=== PATIENT | female | born 2000 | race American Indian/Alaskan Native ===

== ENCOUNTER 2021-09-30 01:05 | Emergency (ER) | payer SELFPAY ==
[2021-09-30] MEDS ORDERED: predniSONE 50 MG TAB PO ONE (08:09)
[2021-09-30] MEDS ORDERED: KETOROLAC 60 MG/2 ML INJ IM ONE (08:09)
[2021-09-30] MEDS ORDERED: predniSONE 20 MG TAB PO ONE (08:11)
--- NOTE | 2021-09-30 08:13 | Emergency Department Report ---
ED Extremity Problem HPI - General Chief complaint: Extremity Problem,Nontraumatic Stated complaint: ARTHRITIS PAIN IN KNEES Time Seen by Provider: 09/30/21 07:41 Source: patient Mode of arrival: Ambulatory Limitations: No Limitations - History of Present Illness Initial comments: 1-year-old female with known history of rheumatoid arthritis and bilateral chronic knee pain secondary to arthritis presents to the ER today complaining of flareup of arthritis pain in her knees. She states that the right wrist and left. She states that the pain started today. Patient states that she typically takes prednisone 5 mg daily, but took her last tablet last night. 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 She reports swelling to both knees. She denies any additional symptoms such as redness to the knees, bruising, calf pain, shortness of breath, chest pain, fever or chills. MD Complaint: joint swelling, joint paint -: year(s) Severity scale (0 -10): 8 - Related Data Previous Rx's Medication Instructions Recorded Last Taken Type Acetaminophen/Codeine [Tylenol 1 tab PO Q6H PRN #12 tab 09/30/21 Unknown Rx /Codeine # 3 tab] Prednisone [predniSONE 10 mg 10 mg PO .TAPER #1 tab.ds.pk 09/30/21 Unknown Rx (6-Day Pack, 21 Tabs)] predniSONE [Deltasone] 5 mg PO QDAY #30 tab 09/30/21 Unknown Rx Allergies Allergy/AdvReac Type Severity Reaction Status Date / Time No Known Allergies Allergy Unverified 09/30/21 01:11 ED Review of Systems ROS: Stated complaint: ARTHRITIS PAIN IN KNEES Other details as noted in HPI Comment: All other systems reviewed and negative Respiratory: denies: cough, shortness of breath, SOB with exertion, SOB at rest, wheezing Cardiovascular: denies: chest pain, palpitations Musculoskeletal: joint swelling, arthralgia Skin: denies: rash, lesions Neurological: abnormal gait. denies: headache, weakness, paresthesias Psychiatric: denies: anxiety, depression, auditory hallucinations, visual hallucinations, homicidal thoughts, suicidal thoughts Hematological/Lymphatic: denies: easy bleeding, swollen glands ED Past Medical Hx - Medications Home Medications: Home Medications Medication Instructions Recorded Confirmed Last Taken Type Acetaminophen/Codeine [Tylenol 1 tab PO Q6H PRN #12 tab 09/30/21 Unknown Rx /Codeine # 3 tab] Prednisone [predniSONE 10 mg 10 mg PO .TAPER #1 tab.ds.pk 09/30/21 Unknown Rx (6-Day Pack, 21 Tabs)] predniSONE [Deltasone] 5 mg PO QDAY #30 tab 09/30/21 Unknown Rx ED Physical Exam - General Limitations: No Limitations General appearance: alert, in no apparent distress - Head Head exam: Present: atraumatic, normocephalic, normal inspection - Respiratory Respiratory exam: Present: normal lung sounds bilaterally. Absent: respiratory distress - Cardiovascular Cardiovascular Exam: Present: regular rate, normal rhythm, normal heart sounds - Extremities Exam Extremities exam: Present: other (Mild swelling noted to both knees, but there is moderate diffuse tenderness noted to the right knee, and mild diffuse tenderness to the left knee. No apparent joint effusion, erythema, deformity or warmth. No calf tenderness or swelling) - Neurological Exam Neurological exam: Present: alert, oriented X3, CN II-XII intact, other (Mild limping gait) - Psychiatric Psychiatric exam: Present: normal affect, normal mood - Skin Skin exam: Present: intact ED Course Vital Signs 09/30/21 09/30/21 01:14 08:27 Temperature 98.0 F Pulse Rate 90 82 Respiratory 20 16 Rate Blood Pressure 113/76 126/78 [Left] O2 Sat by Pulse 99 100 Oximetry Critical care attestation.: If time is entered above; I have spent that time in minutes in the direct care of this critically ill patient, excluding procedure time. ED Disposition Clinical Impression: Chronic pain of both knees, Hx of rheumatoid arthritis Disposition: 01 HOME / SELF CARE / HOMELESS Is pt being admited?: No Does the pt Need Aspirin: No Condition: Stable Instructions: Chronic Knee Pain, Adult, [id number], Arthritis, [id number] Additional Instructions: Recommend that you take the prednisone taper after you complete the prednisone taper start taking the 5 mg daily and also take the Tylenol threes as prescribed to help the pain. Most importantly I do recommend that you try to follow-up with one of the primary care doctors listed on your discharge instructions for continued care of your rheumatoid arthritis and prescription refills. Return to the ER if at any point your symptoms changes or worsens in any way. Prescriptions: predniSONE [Deltasone] 5 mg PO QDAY #30 tab Prednisone [predniSONE 10 mg (6-Day Pack, 21 Tabs)] 10 mg PO .TAPER #1 tab.ds.pk Acetaminophen/Codeine [Tylenol /Codeine # 3 tab] 1 tab PO Q6H PRN #12 tab PRN Reason: Pain , Severe (7-10) Referrals: BARRINGTON CARRILLO MD [Staff Physician] - 3-[address] [facility] [Provider Group] - 3-5 Days [facility] [Provider Group] - 3-5 Days Forms: Work/School Release Form(ED) Time of Disposition: 08:13
[2021-09-30 08:28] VITALS: BP 126/78
== END 2021-09-30 08:27 | disposition home or self-care (01) ==
LOC: ED 01:05
DX: G89.29 Other chronic pain (principal); M25.561 Pain in right knee; M25.562 Pain in left knee; M06.9 Rheumatoid arthritis, unspecified
CPT/HCPCS: 96372; 99282; J1885; J7512

== ENCOUNTER 2022-01-17 07:49 | Emergency (ER) | payer SELFPAY ==
[2022-01-17] MEDS ORDERED: KETOROLAC 10 MG TAB PO ONE (12:14)
[2022-01-17] MEDS ORDERED: predniSONE 20 MG TAB PO ONE (12:14)
[2022-01-17] MEDS ORDERED: ACETAMINOPHEN W/CODEINE 300-30 MG TAB PO ONE (12:15)
--- NOTE | 2022-01-17 12:19 | Emergency Department Report ---
ED Extremity Problem HPI - General Chief complaint: Extremity Problem,Nontraumatic Stated complaint: BILATERAL LEG PAIN Time Seen by Provider: 01/17/22 12:09 Source: EMS Mode of arrival: Stretcher Limitations: No Limitations - History of Present Illness Initial comments: 21-year-old black female with a past medical history of rheumatoid arthritis presents to the emergency department for evaluation of bilateral knee pain and swelling that started yesterday. She denies injury or trauma but states that her pain and swelling is consistent with what she has when she has a flare of her rheumatoid arthritis. She states that she takes prednisone 5 mg p.o. daily for RA but has not had any relief in symptoms. MD Complaint: extremity pain, extremity swelling -: Gradual, days(s) (1) Location: bilateral lower extremity, knee History of Same: Yes -: No myalgia, Yes arthralgia, No fever, No associated dyspnea, No associated chest pain Radiation: none Severity scale (0 -10): 10 Quality: aching Consistency: constant Worsens with: weight bearing, walking Associated Symptoms: arthralgias. denies: chest pain, shortness of breath, fever, myalgias, rash - Related Data Previous Rx's Medication Instructions Recorded Last Taken Type Acetaminophen/Codeine [Tylenol 1 tab PO Q6H PRN #12 tab 09/30/21 Unknown Rx /Codeine # 3 tab] Prednisone [predniSONE 10 mg 10 mg PO .TAPER #1 tab.ds.pk 09/30/21 Unknown Rx (6-Day Pack, 21 Tabs)] predniSONE [Deltasone] 5 mg PO QDAY #30 tab 09/30/21 Unknown Rx Naproxen [Naprosyn] 500 mg PO BID #14 tab 01/17/22 Unknown Rx Prednisone [predniSONE 10 mg 10 mg PO .TAPER #1 pack 01/17/22 Unknown Rx (6-Day Pack, 21 Tabs)] Allergies Allergy/AdvReac Type Severity Reaction Status Date / Time No Known Allergies Allergy Verified 01/17/22 07:51 ED Review of Systems ROS: Stated complaint: BILATERAL LEG PAIN Other details as noted in HPI Comment: All other systems reviewed and negative Constitutional: denies: chills, fever Respiratory: denies: shortness of breath, SOB with exertion, SOB at rest Cardiovascular: denies: chest pain, palpitations Gastrointestinal: denies: abdominal pain Musculoskeletal: denies: back pain Skin: denies: rash ED Past Medical Hx - Medications Home Medications: Home Medications Medication Instructions Recorded Confirmed Last Taken Type Acetaminophen/Codeine [Tylenol 1 tab PO Q6H PRN #12 tab 09/30/21 Unknown Rx /Codeine # 3 tab] Prednisone [predniSONE 10 mg 10 mg PO .TAPER #1 tab.ds.pk 09/30/21 Unknown Rx (6-Day Pack, 21 Tabs)] predniSONE [Deltasone] 5 mg PO QDAY #30 tab 09/30/21 Unknown Rx Naproxen [Naprosyn] 500 mg PO BID #14 tab 01/17/22 Unknown Rx Prednisone [predniSONE 10 mg 10 mg PO .TAPER #1 pack 01/17/22 Unknown Rx (6-Day Pack, 21 Tabs)] ED Physical Exam - General Limitations: No Limitations General appearance: alert, in no apparent distress - Head Head exam: Present: atraumatic, normocephalic - Eye Eye exam: Present: normal appearance. Absent: conjunctival injection - Neck Neck exam: Present: normal inspection - Respiratory Respiratory exam: Present: normal lung sounds bilaterally. Absent: respiratory distress - Cardiovascular Cardiovascular Exam: Present: normal heart sounds - GI/Abdominal GI/Abdominal exam: Present: soft. Absent: distended, tenderness - Extremities Exam Extremities exam: Absent: normal inspection - Expanded Lower Extremity Exam Left Knee exam: Present: tenderness, swelling. Absent: normal inspection, ecchymosis, deformity, crepidus, dislocation, erythema, effusion Neuro vascular tendon exam: Present: no vascular compromise. Absent: pulse deficit, abnormal cap refill, motor deficit, sensory deficit, extremity cold to touch Gait: Positive: observed and limited by pain Right Knee exam: Present: tenderness, swelling. Absent: normal inspection, abrasion, laceration, ecchymosis, deformity, crepidus, dislocation, erythema, effusion Neuro vascular tendon exam: Present: no vascular compromise. Absent: pulse deficit, abnormal cap refill, motor deficit, sensory deficit, extremity cold to touch - Back Exam Back exam: Present: normal inspection - Neurological Exam Neurological exam: Present: alert, oriented X3 - Psychiatric Psychiatric exam: Present: normal affect, normal mood - Skin Skin exam: Present: warm, dry, intact, normal color ED Medical Decision Making - Medical Decision Making 21-year-old black female with a past medical history of rheumatoid arthritis presents to the emergency department for evaluation of bilateral knee pain and swelling that started yesterday. She denies injury or trauma but states that her pain and swelling is consistent with what she has when she has a flare of her rheumatoid arthritis. She states that she takes prednisone 5 mg p.o. daily for RA but has not had any relief in symptoms. Patient noted to have pain and swelling to bilateral knees on assessment, but no other abnormalities noted on assessment. Patient with history of RA along with history of exacerbations that presents like this, so she will be treated with steroids anti-inflammatories and pain medication in the emergency department and sent home with a steroid Dosepak and NSAIDs for the next few days. 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 She verbalized understanding of and agreement with plan of care. Critical care attestation.: If time is entered above; I have spent that time in minutes in the direct care of this critically ill patient, excluding procedure time. ED Disposition Clinical Impression: Pain and swelling of right knee, Pain and swelling of left knee Disposition: 01 HOME / SELF CARE / HOMELESS Is pt being admited?: No Does the pt Need Aspirin: No Condition: Stable Instructions: Arthritis, [id number], Joint Pain, [id number] Additional Instructions: Take medications as prescribed. Follow-up with rheumatology for further evaluation and management. Prescriptions: Naproxen [Naprosyn] 500 mg PO BID #14 tab Prednisone [predniSONE 10 mg (6-Day Pack, 21 Tabs)] 10 mg PO .TAPER #1 pack Referrals: PRIMARY CARE, [Primary Care Provider] - 3-5 Days Forms: Work/School Release Form(ED) Time of Disposition: 12:24
== END 2022-01-17 15:14 | disposition home or self-care (01) ==
LOC: ED 07:49
DX: M25.562 Pain in left knee (principal); M25.561 Pain in right knee; M25.462 Effusion, left knee; M25.461 Effusion, right knee
CPT/HCPCS: 99283